=== PATIENT | male | born 2000 | race Caucasian/White ===

== ENCOUNTER 2019-02-06 14:36 | Emergency (ER) | payer SELFPAY ==
[2019-02-06] MEDS ORDERED: SODIUM CHLORIDE 0.9% 500 ML 500 ML IV ONE (14:55)
--- NOTE | 2019-02-06 14:57 | Emergency Department Report ---
ED General Adult HPI - General Chief complaint: Weakness Stated complaint: UNRESPONSIVE Time Seen by Provider: 02/06/19 14:45 Source: patient (patient and friends/co worker), RN notes reviewed Mode of arrival: Stretcher Limitations: Language Barrier - History of Present Illness Initial comments: arts administrator: Ms. Sylvia Blair This is a 18-year-old gentleman, who is not known to this provider previously. The patient states he has no chronic medical conditions, and indicates he does not have a primary care doctor. He presents to the ER with a friend and coworker. The patient has been complaining of right-sided abdominal pain, and left-sided headache and neck pain, present for the past 3-4 days. Apparently, the patient was working today, in the outdoors, when the abdominal pain became so intense that he collapsed. However, he did not lose consciousness. He states that the headache, left-sided neck pain, and right- sided abdominal pain started simultaneously. He indicates that they are intermittent, but worsening over the past 3-4 days. The headache is left-sided, and does not radiate anywhere, and it is not described as sudden, thunderclap or maximal in intensity. There is no neck stiffness. There is no midline neck pain. There is no loss of vision. There is no chest pain. There is no shortness of breath. The right-sided abdominal pain does not radiate anywhere. There is no testicular pain. There are no urinary symptoms. The patient indicates the abdominal pain does not have exacerbating or relieving factors. -: Gradual, days(s) Location: head, neck, abdomen Quality: aching Consistency: intermittent Improves with: none Worsens with: none - Related Data Previous Rx's Medication Instructions Recorded Last Taken Type Acetaminophen [Non-Aspirin Extra 500 mg PO Q6HR PRN #30 tablet 02/06/19 Unknown Rx Strength] Ibuprofen [Motrin] 600 mg PO Q8H PRN #30 tablet 02/06/19 Unknown Rx Metoclopramide [Reglan] 10 mg PO QID PRN #30 tablet 02/06/19 Unknown Rx Allergies Allergy/AdvReac Type Severity Reaction Status Date / Time No Known Allergies Allergy Verified 02/06/19 14:44 ED Review of Systems ROS: Stated complaint: UNRESPONSIVE Other details as noted in HPI Constitutional: denies: fever Eyes: denies: eye discharge, vision change ENT: denies: epistaxis Respiratory: denies: wheezing Cardiovascular: denies: chest pain, syncope Gastrointestinal: abdominal pain Genitourinary: denies: urgency, dysuria, testicular pain, testicular mass Musculoskeletal: back pain Neurological: headache. denies: weakness, numbness, paresthesias, confusion Hematological/Lymphatic: denies: easy bleeding ED Past Medical Hx - Past Medical History Previous Medical History?: No - Surgical History Past Surgical History?: No - Social History Smoking Status: Never Smoker Substance Use Type: None - Medications Home Medications: Home Medications Medication Instructions Recorded Confirmed Last Taken Type Acetaminophen [Non-Aspirin Extra 500 mg PO Q6HR PRN #30 tablet 02/06/19 Unknown Rx Strength] Ibuprofen [Motrin] 600 mg PO Q8H PRN #30 tablet 02/06/19 Unknown Rx Metoclopramide [Reglan] 10 mg PO QID PRN #30 tablet 02/06/19 Unknown Rx ED Physical Exam - General Limitations: Language Barrier General appearance: alert, in no apparent distress - Head Head exam: Present: atraumatic, normocephalic - Eye Eye exam: Present: normal appearance, PERRL, EOMI, other (visual acuity intact to finger counting and color perception at a close distance). Absent: nystagmus - ENT ENT exam: Present: normal exam, normal orophraynx, mucous membranes moist, nor mal external ear exam - Neck Neck exam: Present: normal inspection, full ROM. Absent: tenderness, meningismus - Respiratory Respiratory exam: Present: normal lung sounds bilaterally. Absent: respiratory distress - Cardiovascular Cardiovascular Exam: Present: regular rate, normal rhythm, normal heart sounds. Absent: bradycardia, tachycardia, irregular rhythm, systolic murmur, diastolic murmur, rubs, gallop - GI/Abdominal GI/Abdominal exam: Present: soft, normal bowel sounds. Absent: distended, tenderness, guarding, rebound, rigid, pulsatile mass - Rectal Rectal exam: Present: deferred - exam: Present: normal inspection, other (there is normal testicular lie. There is normal cremasteric reflex. There is no testicular tenderness. There is no testicular swelling). Absent: testicular tenderness External exam: Present: normal external exam, other (chaperoned by Sylvia Blair) - Extremities Exam Extremities exam: Present: normal inspection, full ROM, other (2+ pulses noted in the bilateral upper, lower extremities. There is no long bone tenderness. Musculoskeletal compartments are soft. The pelvis is stable.) - Back Exam Back exam: Present: normal inspection, full ROM. Absent: tenderness, CVA tenderness (R), CVA tenderness (L), paraspinal tenderness, vertebral tenderness - Neurological Exam Neurological exam: Present: alert, oriented X3, other (there is no facial droop. The tongue is midline. Extraocular movements are intact bilaterally. Patient speaking in full complete sentences. Shoulder shrug is intact bilaterally. Hearing is grossly intact bilaterally. Visual acuity intact to finger counting and color perception at a close distance. 5/5 strength 4 extremities. Sensation intact to light touch in 4 extremities.) - Psychiatric Psychiatric exam: Present: flat affect - Skin Skin exam: Present: warm, dry, intact, normal color. Absent: rash ED Course Vital Signs 02/06/19 02/06/19 02/06/19 14:40 14:44 14:46 Temperature 99 F Pulse Rate 74 81 90 Respiratory 16 16 19 Rate Blood Pressure 133/63 133/63 O2 Sat by Pulse 100 100 Oximetry 02/06/19 02/06/19 02/06/19 15:00 15:16 15:30 Temperature Pulse Rate 88 80 80 Respiratory 19 17 14 Rate Blood Pressure 138/74 135/69 136/68 O2 Sat by Pulse 99 99 99 Oximetry 02/06/19 02/06/19 02/06/19 15:46 16:00 16:16 Temperature Pulse Rate 89 93 H 72 Respiratory 13 14 18 Rate Blood Pressure 123/63 132/67 133/58 O2 Sat by Pulse 100 99 99 Oximetry 02/06/19 02/06/19 02/06/19 16:30 16:51 18:32 Temperature Pulse Rate 74 66 Respiratory 15 19 14 Rate Blood Pressure 123/62 123/62 O2 Sat by Pulse 98 96 98 Oximetry - Reevaluation(s) Reevaluation #1: 02/06/19 16:59 Differential diagnosis, including but not limited to: Appendicitis, renal colic, AAA, constipation, perforated viscus, urinary tract infection, pneumonia, migraine headache, tension headache, cluster headache, carotid dissection, intracranial hemorrhage Assessment and plan: 18-year-old gentleman, with complaint of abdominal pain, headache, collapsing at work, without loss of consciousness. He does not have a fever, there are no meningeal signs, he is clinically sober. He is not tachycardic, he is not hypoxic, he endorses no DVT or pulmonary embolism risk factors, and he is low risk by well's criteria, as well as being perc negative Complaint #1: Abdominal pain We will treat the patient's pain, obtain CT scan of abdomen pelvis, and reassess.\ Abdomen soft and benign, without rebound, guarding or peritoneal signs. Has a normal testicular examination Complaint #2, headache and neck pain: GCS of 15, NIH score of 0, clinically sober, nonfocal neurologic examination, does not describe sudden or thunderclap headache. We will treat his headache, obtain CT scan brain, CT angiogram head and neck. We will reassess. 02/06/19 17:04 02/06/19 17:05 Reevaluation #2: 02/06/19 17:[address] scan brain negative for acute disease. CT scan abdomen pelvis negative for acute disease. Reevaluation #3: 02/06/19 19:32 The patient is reassessed multiple times. Objective imaging studies unremarkable. Repeat neurologic and mental status examination unremarkable and unchanged from prior. His belly is soft on repeat examination. He states he feels improved. He is suitable for discharge with outpatient follow-up. ED Medical Decision Making - Lab Data Result diagrams: 02/06/19 15:03 02/06/19 15:03 Vital Signs 02/06/19 02/06/19 14:44 16:51 Temperature 99 F Pulse Rate 81 Respiratory 16 19 Rate Blood Pressure 133/63 O2 Sat by Pulse 100 96 Oximetry Lab Results 02/06/19 02/06/19 02/06/19 Range/Units 14:48 15:03 15:03 WBC 7.1 (4.5-11.0) K/mm3 RBC 5.20 H (3.65-5.03) M/mm3 Hgb 16.3 H (11.8-15.2) gm/dl Hct 47.6 H (35.5-45.6) % MCV 92 (84-94) fl MCH 31 (28-32) pg MCHC 34 (32-34) % RDW 13.2 (13.2-15.2) % Plt Count 155 (140-440) K/mm3 Lymph % (Auto) 20.1 (13.4-35.0) % Moore % (Auto) 9.1 H (0.0-7.3) % Eos % (Auto) 2.9 (0.0-4.3) % Baso % (Auto) 0.6 (0.0-1.8) % Lymph # 1.4 (1.2-5.4) K/mm3 Moore # 0.6 (0.0-0.8) K/mm3 Eos # 0.2 (0.0-0.4) K/mm3 Baso # 0.0 (0.0-0.1) K/mm3 Seg Neutrophils % 67.3 (40.0-70.0) % Seg Neutrophils # 4.8 (1.8-7.7) K/mm3 PT 12.6 (12.2-14.9) Sec. INR 0.95 (0.87-1.13) Sodium (137-145) mmol/L Potassium (3.6-5.0) mmol/L Chloride (98-107) mmol/L Carbon Dioxide (22-30) mmol/L Anion Gap mmol/L BUN (9-20) mg/dL Creatinine (0.8-1.5) mg/dL Estimated GFR ml/min BUN/Creatinine Ratio % Glucose (75-100) mg/dL POC Glucose 87 (70-105) Calcium (8.4-10.2) mg/dL Phosphorus (2.5-4.5) mg/dL Magnesium (1.7-2.3) mg/dL Total Bilirubin (0.1-1.2) mg/dL AST (5-40) units/L ALT (7-56) units/L Alkaline Phosphatase (35-129) units/L Total Creatine Kinase (55-170) units/L Troponin T (0.00-0.029) ng/mL Total Protein (6.3-8.2) g/dL Albumin (3.9-5) g/dL Albumin/Globulin Ratio % TSH (0.270-4.200) mlU/mL Urine Color (Yellow) Urine Turbidity (Clear) Urine pH (5.0-7.0) Ur Specific [place] (1.003-1.030) Urine Protein (Negative) mg/dL Urine Glucose (UA) (Negative) mg/dL Urine Ketones (Negative) mg/dL Urine Blood (Negative) Urine Nitrite (Negative) Urine Bilirubin (Negative) Urine Urobilinogen (<2.0) mg/dL Ur Leukocyte Esterase (Negative) Urine WBC (Auto) (0.0-6.0) /HPF Urine RBC (Auto) (0.0-6.0) /HPF U Epithel Cells (Auto) (0-13.0) /HPF Salicylates (2.8-20.0) mg/dL Urine Opiates Screen Urine Methadone Screen Acetaminophen (10.0-30.0) ug/mL Ur Barbiturates Screen Ur Phencyclidine Scrn Ur Amphetamines Screen U Benzodiazepines Scrn Urine Cocaine Screen U Marijuana (THC) Screen Drugs of Abuse Note Plasma/Serum Alcohol (0-0.07) % 02/06/19 02/06/19 02/06/19 Range/Units 15:03 15:03 15:03 WBC (4.5-11.0) K/mm3 RBC (3.65-5.03) M/mm3 Hgb (11.8-15.2) gm/dl Hct (35.5-45.6) % MCV (84-94) fl MCH (28-32) pg MCHC (32-34) % RDW (13.2-15.2) % Plt Count (140-440) K/mm3 Lymph % (Auto) (13.4-35.0) % Moore % (Auto) (0.0-7.3) % Eos % (Auto) (0.0-4.3) % Baso % (Auto) (0.0-1.8) % Lymph # (1.2-5.4) K/mm3 Moore # (0.0-0.8) K/mm3 Eos # (0.0-0.4) K/mm3 Baso # (0.0-0.1) K/mm3 Seg Neutrophils % (40.0-70.0) % Seg Neutrophils # (1.8-7.7) K/mm3 PT (12.2-14.9) Sec. INR (0.87-1.13) Sodium 144 (137-145) mmol/L Potassium 3.7 (3.6-5.0) mmol/L Chloride 102.7 (98-107) mmol/L Carbon Dioxide 26 (22-30) mmol/L Anion Gap 19 mmol/L BUN 13 (9-20) mg/dL Creatinine 0.9 (0.8-1.5) mg/dL Estimated GFR > 60 ml/min BUN/Creatinine Ratio 14 % Glucose 88 (75-100) mg/dL POC Glucose (70-105) Calcium 9.6 (8.4-10.2) mg/dL Phosphorus 2.20 L (2.5-4.5) mg/dL Magnesium 2.00 (1.7-2.3) mg/dL Total Bilirubin 0.30 (0.1-1.2) mg/dL AST 23 (5-40) units/L ALT 41 (7-56) units/L Alkaline Phosphatase 61 (35-129) units/L Total Creatine Kinase 204 H (55-170) units/L Troponin T < 0.010 (0.00-0.029) ng/mL Total Protein 7.6 (6.3-8.2) g/dL Albumin 4.7 (3.9-5) g/dL Albumin/Globulin Ratio 1.6 % TSH 1.110 (0.270-4.200) mlU/mL Urine Color (Yellow) Urine Turbidity (Clear) Urine pH (5.0-7.0) Ur Specific [place] (1.003-1.030) Urine Protein (Negative) mg/dL Urine Glucose (UA) (Negative) mg/dL Urine Ketones (Negative) mg/dL Urine Blood (Negative) Urine Nitrite (Negative) Urine Bilirubin (Negative) Urine Urobilinogen (<2.0) mg/dL Ur Leukocyte Esterase (Negative) Urine WBC (Auto) (0.0-6.0) /HPF Urine RBC (Auto) (0.0-6.0) /HPF U Epithel Cells (Auto) (0-13.0) /HPF Salicylates (2.8-20.0) mg/dL Urine Opiates Screen Urine Methadone Screen Acetaminophen (10.0-30.0) ug/mL Ur Barbiturates Screen Ur Phencyclidine Scrn Ur Amphetamines Screen U Benzodiazepines Scrn Urine Cocaine Screen U Marijuana (THC) Screen Drugs of Abuse Note Plasma/Serum Alcohol (0-0.07) % 02/06/19 02/06/19 02/06/19 Range/Units 15:03 15:03 15:03 WBC (4.5-11.0) K/mm3 RBC (3.65-5.03) M/mm3 Hgb (11.8-15.2) gm/dl Hct (35.5-45.6) % MCV (84-94) fl MCH (28-32) pg MCHC (32-34) % RDW (13.2-15.2) % Plt Count (140-440) K/mm3 Lymph % (Auto) (13.4-35.0) % Moore % (Auto) (0.0-7.3) % Eos % (Auto) (0.0-4.3) % Baso % (Auto) (0.0-1.8) % Lymph # (1.2-5.4) K/mm3 Moore # (0.0-0.8) K/mm3 Eos # (0.0-0.4) K/mm3 Baso # (0.0-0.1) K/mm3 Seg Neutrophils % (40.0-70.0) % Seg Neutrophils # (1.8-7.7) K/mm3 PT (12.2-14.9) Sec. INR (0.87-1.13) Sodium (137-145) mmol/L Potassium (3.6-5.0) mmol/L Chloride (98-107) mmol/L Carbon Dioxide (22-30) mmol/L Anion Gap mmol/L BUN (9-20) mg/dL Creatinine (0.8-1.5) mg/dL Estimated GFR ml/min BUN/Creatinine Ratio % Glucose (75-100) mg/dL POC Glucose (70-105) Calcium (8.4-10.2) mg/dL Phosphorus (2.5-4.5) mg/dL Magnesium (1.7-2.3) mg/dL Total Bilirubin (0.1-1.2) mg/dL AST (5-40) units/L ALT (7-56) units/L Alkaline Phosphatase (35-129) units/L Total Creatine Kinase (55-170) units/L Troponin T (0.00-0.029) ng/mL Total Protein (6.3-8.2) g/dL Albumin (3.9-5) g/dL Albumin/Globulin Ratio % TSH (0.270-4.200) mlU/mL Urine Color (Yellow) Urine Turbidity (Clear) Urine pH (5.0-7.0) Ur Specific [place] (1.003-1.030) Urine Protein (Negative) mg/dL Urine Glucose (UA) (Negative) mg/dL Urine Ketones (Negative) mg/dL Urine Blood (Negative) Urine Nitrite (Negative) Urine Bilirubin (Negative) Urine Urobilinogen (<2.0) mg/dL Ur Leukocyte Esterase (Negative) Urine WBC (Auto) (0.0-6.0) /HPF Urine RBC (Auto) (0.0-6.0) /HPF U Epithel Cells (Auto) (0-13.0) /HPF Salicylates < 0.3 L (2.8-20.0) mg/dL Urine Opiates Screen Urine Methadone Screen Acetaminophen < 5.0 L (10.0-30.0) ug/mL Ur Barbiturates Screen Ur Phencyclidine Scrn Ur Amphetamines Screen U Benzodiazepines Scrn Urine Cocaine Screen U Marijuana (THC) Screen Drugs of Abuse Note Plasma/Serum Alcohol < 0.01 (0-0.07) % 02/06/19 02/06/19 Range/Units Unknown Unknown WBC (4.5-11.0) K/mm3 RBC (3.65-5.03) M/mm3 Hgb (11.8-15.2) gm/dl Hct (35.5-45.6) % MCV (84-94) fl MCH (28-32) pg MCHC (32-34) % RDW (13.2-15.2) % Plt Count (140-440) K/mm3 Lymph % (Auto) (13.4-35.0) % Moore % (Auto) (0.0-7.3) % Eos % (Auto) (0.0-4.3) % Baso % (Auto) (0.0-1.8) % Lymph # (1.2-5.4) K/mm3 Moore # (0.0-0.8) K/mm3 Eos # (0.0-0.4) K/mm3 Baso # (0.0-0.1) K/mm3 Seg Neutrophils % (40.0-70.0) % Seg Neutrophils # (1.8-7.7) K/mm3 PT (12.2-14.9) Sec. INR (0.87-1.13) Sodium (137-145) mmol/L Potassium (3.6-5.0) mmol/L Chloride (98-107) mmol/L Carbon Dioxide (22-30) mmol/L Anion Gap mmol/L BUN (9-20) mg/dL Creatinine (0.8-1.5) mg/dL Estimated GFR ml/min BUN/Creatinine Ratio % Glucose (75-100) mg/dL POC Glucose (70-105) Calcium (8.4-10.2) mg/dL Phosphorus (2.5-4.5) mg/dL Magnesium (1.7-2.3) mg/dL Total Bilirubin (0.1-1.2) mg/dL AST (5-40) units/L ALT (7-56) units/L Alkaline Phosphatase (35-129) units/L Total Creatine Kinase (55-170) units/L Troponin T (0.00-0.029) ng/mL Total Protein (6.3-8.2) g/dL Albumin (3.9-5) g/dL Albumin/Globulin Ratio % TSH (0.270-4.200) mlU/mL Urine Color Straw (Yellow) Urine Turbidity Clear (Clear) Urine pH 7.0 (5.0-7.0) Ur Specific [place] 1.008 (1.003-1.030) Urine Protein <15 mg/dl (Negative) mg/dL Urine Glucose (UA) 50 (Negative) mg/dL Urine Ketones Neg (Negative) mg/dL Urine Blood Neg (Negative) Urine Nitrite Neg (Negative) Urine Bilirubin Neg (Negative) Urine Urobilinogen < 2.0 (<2.0) mg/dL Ur Leukocyte Esterase Neg (Negative) Urine WBC (Auto) < 1.0 (0.0-6.0) /HPF Urine RBC (Auto) 1.0 (0.0-6.0) /HPF U Epithel Cells (Auto) < 1.0 (0-13.0) /HPF Salicylates (2.8-20.0) mg/dL Urine Opiates Screen Presumptive negative Urine Methadone Screen Presumptive negative Acetaminophen (10.0-30.0) ug/mL Ur Barbiturates Screen Presumptive negative Ur Phencyclidine Scrn Presumptive negative Ur Amphetamines Screen Presumptive negative U Benzodiazepines Scrn Presumptive negative Urine Cocaine Screen Presumptive negative U Marijuana (THC) Screen Presumptive negative Drugs of Abuse Note Disclamer Plasma/Serum Alcohol (0-0.07) % - EKG Data -: EKG Interpreted by Me EKG shows normal: sinus rhythm Rate: normal - EKG Data When compared to previous EKG there are: previous EKG unavailable 02/06/19 17:06 EKG shows a normal sinus rhythm, 75 bpm, normal axis, QTC is 396 ms, there is borderline high left ventricular voltage, there is atrial enlargement, the EKG is not consistent with ST elevation myocardial infarction. - Radiology Data Radiology results: report reviewed, image reviewed X-ray of the chest is negative for acute disease Critical care attestation.: If time is entered above; I have spent that time in minutes in the direct care of this critically ill patient, excluding procedure time. ED Disposition Clinical Impression: Lower abdominal pain, Headache Disposition: TO HOME OR SELFCARE Is pt being admited?: No Does the pt Need Aspirin: No Condition: Stable Additional Instructions: Take the medications as needed and directed. Follow-up with the primary care doctor within the next 3-4 weeks. Return to the emergency room right away with new, worsened, different symptoms, or symptoms not present on the initial emergency room evaluation. Please drink 4-6 cups of water per day for the next 5-7 days. If patient takes metformin medication, do not take this medicine for the next 2 days. tome los medicamentos segn sea necesario y segn las indicaciones. Mg un seguimiento con el mdico de atencin primaria dentro de las prximas 3-4 semanas. Regrese a la kathleen de emergencias de inmediato con sntomas nuevos, empeorados, diferentes o sntomas que no estn presentes en la evaluacin inicial de la kathleen de emergencias. Damari 4-6 tazas de agua por da darren los prximos 5-7 carreon. Si el paciente jessica metformina, no tome jan medicamento darren los prximos 2 carreon. Referrals: PRIMARY CARE, [Primary Care Provider] - 3-5 Days [facility] [Provider Group] - 3-5 Days [facility]ARE [Provider Group] - 3-5 Days Forms: Work/School Release Form(ED)
--- NOTE | 2019-02-06 15:24 | XRay Report ---
CHEST 1 VIEW INDICATION: Weakness. COMPARISON: None FINDINGS: Support devices: None. Heart: Within normal limits. Lungs/Pleura: No acute air space or interstitial disease. Additional findings: None. IMPRESSION: No acute findings. Signer Name: Jose F Stanford Jr, MD Signed: 02/06/2019 3:19 PM Workstation Name: [id number]
[2019-02-06 15:32] LABS: Basophils % (Auto) 0.6 % (0.0-1.8); Eosinophils # (Auto) 0.2 K/mm3 (0.0-0.4); Eosinophils % (Auto) 2.9 % (0.0-4.3); Hematocrit 47.6 % (35.5-45.6); Hemoglobin 16.3 gm/dl (11.8-15.2); Lymphocytes # (Auto) 1.4 K/mm3 (1.2-5.4); Lymphocytes % (Auto) 20.1 % (13.4-35.0); Mean Corpuscular HGB Conc 34 % (32-34); Mean Corpuscular Volume 92 fl (84-94); Monocytes # (Auto) 0.6 K/mm3 (0.0-0.8); Monocytes % (Auto) 9.1 % (0.0-7.3); Platelet Count 155 K/mm3 (140-440); Red Cell Distribution Width 13.2 % (13.2-15.2)
[2019-02-06 15:42] LABS: INR 0.95 (0.87-1.13)
[2019-02-06 15:48] LABS: Alanine Aminotransferase 41 units/L (7-56); Albumin 4.7 g/dL (3.9-5); BUN/Creatinine Ratio 14; Blood Urea Nitrogen 13 mg/dL (9-20); Calcium 9.6 mg/dL (8.4-10.2); Hemolysis Index 7
[2019-02-06 15:50] LABS: Amphetamine Screen,Urine PRESUMPTIVE NEGATIVE; Benzodiazepines Screen,Urine PRESUMPTIVE NEGATIVE; Cannabinoid Screen,Urine PRESUMPTIVE NEGATIVE; Cocaine Screen,Urine PRESUMPTIVE NEGATIVE; Methadone Screen,Urine PRESUMPTIVE NEGATIVE; Opiate Screen,Urine PRESUMPTIVE NEGATIVE
[2019-02-06 16:04] LABS: Protein,Urine <15 mg/dL mg/dL (Negative)
[2019-02-06 16:29] LABS: Bilirubin,Urine NEG (Negative); Blood,Urine NEG (Negative); Color,Urine Straw (Yellow); Urobilinogen,Urine < 2.0 mg/dL (<2.0); WBC,Urine < 1.0 /HPF (0.0-6.0)
[2019-02-06] MEDS ORDERED: FAMOTIDINE 20 MG/2 ML INJ IV ONE (17:05)
[2019-02-06] MEDS ORDERED: ACETAMINOPHEN 325 MG TAB PO ONE (17:05)
[2019-02-06] MEDS ORDERED: METOCLOPRAMIDE 10 MG/2 ML INJ IV ONE (17:05)
--- NOTE | 2019-02-06 17:19 | Cat Scan Report ---
CT head without contrast INDICATION : Weakness. TECHNIQUE: Axial imaging performed from the skull apex through the skull base without the use of con trast. All CT scans at this location are performed using CT dose reduction for ALARA by means of aut omated exposure control. COMPARISON: None FINDINGS: Parenchyma: No acute intracranial hemorrhage or parenchymal abnormality. Ventricles: Ventricles are normal in size and appear symmetric. Soft tissues: Soft tissues including the orbits appear normal. Bones: No acute osseous abnormality. Sinuses: Sinuses and mastoid air cells are clear. IMPRESSION: No acute abnormality. Signer Name: Richard Epperson MD Signed: 02/06/2019 5:14 PM Workstation Name: [id number]
--- NOTE | 2019-02-06 17:50 | Cat Scan Report ---
CT abdomen pelvis w con INDICATION / CLINICAL INFORMATION: rlq right flank abd pain. TECHNIQUE: All CT scans at this location are performed using CT dose reduction for ALARA by means of automated e xposure control. COMPARISON: None available. FINDINGS: Limited lower thoracic images show no acute pulmonary disease. ABDOMEN: The gallbladder, liver, spleen, pancreas and kidneys are normal Adrenal glands are normal. No mesenteric or retroperitoneal adenopathy and adenopathy. Small bowel is normal. Pelvis: No dependent fluid collections or inflammatory changes are identified in the pelvis. Urinary bladder is normal. No skeletal abnormalities. IMPRESSION: 1. No acute abdominal or pelvic abnormality. Signer Name: Adolph Martinez MD Signed: 02/06/2019 5:45 PM Workstation Name: [id number]
--- NOTE | 2019-02-06 18:18 | Cat Scan Report ---
CTA head with intravenous contrast CLINICAL HISTORY: Headache and weakness. Left sided neck pain TECHNIQUE: 0.625 mm thick contiguous axial scans were obtained from the skull base to the skull vertex during ra pid bolus administration of intravenous contrast material. Multiplanar reconstructions were produced in the coronal and sagittal planes. In addition 3 plane MIP instructions were produced and reviewed f or this report. The axial source images and reconstructed images were reviewed for this report. All CT scans at this location are performed using CT dose reduction for ALARA by means of automated e xposure control. FINDINGS: The caliber of the intracranial vessels is normal throughout. There is no indication of intracranial stenosis or large vessel occlusion. There is no indication of vasculitis. There is no evidence of aneurysm or other vascular malformation. The dural sinuses demonstrate normal contrast enhancement. There is no evidence of dural sinus thromb osis. Incidental note is made of persistence of the cava septum pellucidum and cavum vergae. IMPRESSION: Normal CTA head. CONTRAST DOSE REPORT: Omnipaque 350: 100 ml administered intravenously. Signer Name: Humberto Sarmiento MD Signed: 02/06/2019 6:14 PM Workstation Name: [id number]
--- NOTE | 2019-02-06 18:21 | Cat Scan Report ---
CTA neck without and with intravenous contrast material CLINICAL HISTORY: Headache and weakness. Left-sided neck pain. TECHNIQUE: Following acquisition of a timing bolus 0.625 mm thick contiguous axial scans were obtained from aort ic arch to the skull base during rapid bolus intravenous contrast infusion. In addition to evaluation of axial source images multiplanar reconstructions were produced and reviewed for this report. 3 mar ne MIP reconstructions were produced and reviewed. FINDINGS: No abnormalities are seen at the origins of the great vessels. Common carotid arteries, carotid bifurcations and cervical portions of the internal carotid arteries all have a normal appearance. There is no indication of hemodynamically significant stenosis. Normal and symmetrical vertebral arteries are present. There is no indication of stenosis along the c ourse of the vertebral arteries. Both vertebral arteries contribute to the basilar artery origin. The basilar artery has an unremarkable appearance. The degree of stenosis, if any, is determined utilizing NASCET like criteria. In this case there is no indication of hemodynamically significant stenosis. There is no indication of dissection. Evaluation of the nonvascular soft tissue structures reveal no abnormality. There is no indication of cervical lymphadenopathy. No abnormalities are seen along the course of the airway. Visualized porti ons of the parotid glands and the submandibular salivary glands have a normal appearance. Thyroid gla nd has a normal appearance. Evaluation of the lung apices reveals no evidence of lung nodule or infil trate. Evaluation of the cervical spine revealed no significant abnormalities. IMPRESSION: 1. Normal CTA neck. Contrast dose report: Omnipaque 350: 100 ml, administered intravenously All CT examinations performed at this facility utilize modulated dose reduction, iterative reconstruc tion or weight-based dosing, as appropriate, to obtain a radiation dose which is as low as can reason ably be achieved. Signer Name: Humberto Sarmiento MD Signed: 02/06/2019 6:17 PM Workstation Name: [id number]
[2019-02-06 18:35] VITALS: BP 123/62
[2019-02-06] MEDS ORDERED: KETOROLAC 30 MG/1 ML INJ IV ONE (19:27)
== END 2019-02-06 22:07 | disposition home or self-care (01) ==
LOC: ED 14:36
DX: R10.30 Lower abdominal pain, unspecified (principal); R51 Headache
CPT/HCPCS: 36415; 70450; 70496; 70498; 71045; 74177; 80053; 80307; 81001; 82550; 82962; 83735; 84100; 84443; 84484; 85025; 85610; 93005; 93010; 96374; 96375; 99285; J1885; J2765; J7040; Q9967; 80320; G0480